=== PATIENT | male | born 1955 | race Caucasian/White ===

== ENCOUNTER 2022-01-23 13:32 | Emergency (ER) | payer MEDICARE ==
[~2022-01-23] VITALS: Ht 177.8 cm; Wt 100.0 kg
[2022-01-23 13:36] VITALS: TEMP 98.8
[2022-01-23 16:19] VITALS: BP 145/83; PULSE 87
== END 2022-01-23 16:20 | disposition home or self-care (01) ==
LOC: COL.ER 13:32
DX: S01.01XA Laceration without foreign body of scalp, initial encounter (principal); Z28.310 Unvaccinated for COVID-19; W10.8XXA Fall (on) (from) other stairs and steps, initial encounter